=== PATIENT | female | born 1985 | race Caucasian/White ===

== ENCOUNTER 2024-10-27 10:46 | Outpatient (OUT) | payer OTHER, SELFPAY ==
[2024-10-29 14:07] LABS: Complement, Total (CH50) 37 U/mL (>41)
== END 2024-10-27 10:47 | disposition home or self-care (01) ==
LOC: LAB 10:50
PROVIDERS: PCP Student in an Organized Health Care Education/Training Program; Visit Provider Internal Medicine Rheumatology
DX: R76.0 Raised antibody titer (principal)
CPT/HCPCS: 36415; 86162